=== PATIENT | female | born 1980 | race Caucasian/White ===

== ENCOUNTER 2018-05-06 05:34 | Emergency (ER) | payer OTHER ==
[~2018-05-06] VITALS: Ht 162.6 cm; Wt 214.6 kg
[~2018-05-06 05:34] MED LIST: AMITRIPTYLINE H10 MG PO; CEPHALEXIN500 MG PO; CRUTCH1 EACH; CYCLOBENZAPRINE10 MG PO; EFFER-K 10 MEQ10 MEQ PO; HYDROCHLOROTHIA25 MG PO; LAMICTAL100 MG PO; LEVAQUIN500 MG PO; LISINOPRIL20 MG PO; NAPROSYN500 MG PO; NAPROXEN500 MG PO; NORCO 5-325 TA1 EACH PO; PROTONIX40 MG PO; PROZAC10 MG PO; SULFACETAMIDE3.5 GM OPTH; TAMIFLU75 MG PO; TRIAMCINOLONE A15 GM TOP; ZESTORETIC 10-121 E1 PO; ZESTORETIC 20-1 EACH PO
--- OUTSIDE RECORDS SUMMARY | 2018-05-06 05:36 | XMS ---
PreManage Notification: DICK FIERRO Security Corporate Development Manager Events No recent Security Events currently on file CRITERIA MET - Group Notification CARE PROVIDERS There are no care providers on record at this time. Anne has no Care Guidelines for this patient. Ledy VISIT COUNT (12 MO.) 1 IZABELA Cabello TOTAL 1 NOTE: Visits indicate total known visits. ED/C VISIT TRACKING (12 MO.) 05/06/2018 05:34 IZABELA Hook [place] TYPE: Emergency COMPLAINT: - R SHOULDER/NECK PAIN INPATIENT VISIT TRACKING (12 MO.) No inpatient visits to display in this time frame [email or web address]
[2018-05-06] MEDS ORDERED: K-TAB ER20 MEQ PO (05:43)
[2018-05-06] MEDS ORDERED: LISINOPRIL-HCT1 EAC1 PO (05:43)
[2018-05-06] MEDS ORDERED: KLOR-CON 88 MEQ PO (05:44)
[2018-05-06] MEDS ORDERED: VENTOLIN HFA18 GM INH (05:44)
[2018-05-06] MEDS ORDERED: FLOVENT HFA12 G1 INH (05:45)
[2018-05-06] MEDS ORDERED: COLESTID1 GM PO (05:46)
[2018-05-06] MEDS ORDERED: BACLOFEN10 MG PO (06:06)
[2018-05-06] MEDS ORDERED: DICLOFENAC SODI75 MG PO (06:06)
== END 2018-05-06 06:15 | disposition home or self-care (01) ==
LOC: ED 05:34
DX: M54.2 Cervicalgia (principal); I10 Essential (primary) hypertension; F31.9 Bipolar disorder, unspecified; J45.909 Unspecified asthma, uncomplicated; Z88.8 Allergy status to other drugs, medicaments and biological substances; Z79.899 Other long term (current) drug therapy
CPT/HCPCS: 99283

== ENCOUNTER 2019-02-26 17:17 | Emergency (ER) | payer OTHER ==
[~2019-02-26] VITALS: Ht 162.6 cm; Wt 214.6 kg
[~2019-02-26 17:17] MED LIST changes: +BACLOFEN10 MG PO; +COLESTID1 GM PO; +DICLOFENAC SODI75 MG PO; +FLOVENT HFA12 G1 INH; +K-TAB ER20 MEQ PO; +KLOR-CON 88 MEQ PO; +LISINOPRIL-HCT1 EAC1 PO; +VENTOLIN HFA18 GM INH
--- OUTSIDE RECORDS SUMMARY | 2019-02-26 17:22 | XMS ---
PreManage Notification: DICK FIERRO Security Animal Behaviourist Events No recent Security Events currently on file CRITERIA MET - Group Notification CARE PROVIDERS ERIC ZHAO Physician Assistant Familia Vernon PHONE: [phone] Anne has no Care Guidelines for this patient. ELoraine VISIT COUNT (12 MO.) 2 IZABELA Cabello TOTAL 2 NOTE: Visits indicate total known visits. ED/UCC VISIT TRACKING (12 MO.) 02/26/2019 17:19 IZABELA [facility] [place] TYPE: Emergency COMPLAINT: - DEEP COUGH, SIDE AND STOMACH HURT 05/06/2018 05:34 IZABELA [facility] [place] TYPE: Emergency COMPLAINT: - R SHOULDER/NECK PAIN DIAGNOSES: - Allergy status to oth drug/meds/biol subst status - Bipolar disorder, unspecified - Unspecified asthma, uncomplicated - Cervicalgia - Other care home (current) drug therapy - Essential (primary) hypertension INPATIENT VISIT TRACKING (12 MO.) No inpatient visits to display in this time frame [email or web address]
[2019-02-26] MEDS ORDERED: LEVAQUIN750 MG PO (20:22)
[2019-02-26] MEDS ORDERED: MEDROL4 M1 PO (20:22)
== END 2019-02-26 20:46 | disposition home or self-care (01) ==
LOC: ED 17:17
DX: J15.5 Pneumonia due to Escherichia coli (principal); B34.9 Viral infection, unspecified; I10 Essential (primary) hypertension; J45.909 Unspecified asthma, uncomplicated; F31.9 Bipolar disorder, unspecified; F41.9 Anxiety disorder, unspecified; F43.10 Post-traumatic stress disorder, unspecified; E66.01 Morbid (severe) obesity due to excess calories; Z88.8 Allergy status to other drugs, medicaments and biological substances; Z79.899 Other long term (current) drug therapy; Z79.51 Long term (current) use of inhaled steroids
CPT/HCPCS: 71046; 99283-25

== ENCOUNTER 2020-01-01 22:17 | Inpatient (IN) | payer OTHER ==
[~2020-01-01] VITALS: Ht 162.6 cm; Wt 226.8 kg
[~2020-01-01 22:17] MED LIST changes: -FLOVENT HFA12 G1 INH; +FLOVENT HFA12 GM INH; +LEVAQUIN750 MG PO; +MEDROL4 M1 PO
--- OUTSIDE RECORDS SUMMARY | 2020-01-01 22:20 | XMS ---
PreManage Notification: DICK FIERRO Security First Helper Events No recent Security Events currently on file CRITERIA MET - Group Notification CARE PROVIDERS Donna Leroy Manager Critical Care/Bias Machine Operator Helper 09/21/2016-Current PHONE: [phone] ERIC ZHAO Physician Assistant Familia Vernon PHONE: [phone] Anne has no Care Guidelines for this patient. Ledy VISIT COUNT (12 MO.) 2 IZABELA Cabello TOTAL 2 NOTE: Visits indicate total known visits. ED/UCC VISIT TRACKING (12 MO.) 01/01/2020 22:18 I[facility]ELA [facility] [place] TYPE: Emergency COMPLAINT: - COUGH/FEVER/SOB 02/26/2019 17:19 IZABELA [facility] [place] TYPE: Emergency COMPLAINT: - DEEP COUGH, SIDE AND STOMACH HURT DIAGNOSES: - Allergy status to other drugs, medicaments and biological sub - Anxiety disorder, unspecified - Other equipment operator intermodal yard (current) drug therapy - Viral infection, unspecified - MCC (current) use of inhaled steroids - Pneumonia due to Escherichia coli - Unspecified asthma, uncomplicated - Post-traumatic stress disorder, unspecified - Nasal congestion - Essential (primary) hypertension - Bipolar disorder, unspecified - Morbid (severe) obesity due to excess calories INPATIENT VISIT TRACKING (12 MO.) No inpatient visits to display in this time frame [id number]
[2020-01-01] MEDS ORDERED: AMLODIPINE BESY10 MG PO (22:45)
[2020-01-01] MEDS ORDERED: CARVEDILOL6.25 MG PO (22:45)
[2020-01-01] MEDS ORDERED: HYDROCHLOROTHIA50 MG PO (22:45)
--- NOTE | 2020-01-02 01:30 | NUR ---
PATIENT INTAKE COMPLETED. PATIENT O2 SAT IN THE 80S WITH AMBULATION. PLACED ON NC TITRATED TO 2L. 02 SAT. RETURNED TO 96%, THEN TITRATED TO 1L NC. PATIENT STATED THAT SHE HAS A LARGE GROWTH BEHIND RIGHT CALF THAT DOES NOT HAVE BLOOD SUPPLY AND IS SUPPOSED TO BE REMOVED. ALSO STATES THAT A1C IS 5.99. PATIENT POSITIONED WITH PILLOWS UNDER ARMS AND LEFT RESTING IN BED WITH CALL LIGHT IN REACH.
--- NOTE | 2020-01-02 04:37 | NUR ---
PATIENT ASSESSMENT COMPLETED. PATIENT REPORTED PAIN IN HER BACK AND STATED IT HAPPENS WHEN SHE SITS FOR LONG PERIODS OF TIME. REPOSITIONED PATIENT AND GIVEN PRN TYLENOL. PATIENT DEMONSTRATED USE OF INHALER WITH SPACER. REQUESTED A PUDDING AND ATE 100%. PATIENT DENIED FURTHER NEEDS AND LEFT RESTING IN BED WITH CALL LIGHT IN REACH.
--- NOTE | 2020-01-02 06:43 | NUR ---
PATIENT ASSISTED TO COMMODE. HR INCREASED TO 124 WITH AMBULATION. TITRATED TO 2L O2 VIA NC. PATIENT DIAPHORETIC AND BEDDING SATURATED. CHANGED BEDDING. PATIENT TEMP 98.6 AXILLARY. PATIENT DENIED PAIN AND REQUESTED BREAKFAST. PATIENT LEFT RESTING IN BED WITH CALL LIGHT IN REACH.
--- NOTE | 2020-01-02 09:01 | NUR ---
Assessment completed. Chronic back pain at this time. Educated on oxygen use and instructed to communicate with staff if any changes to breathing, including shortness of breath. Verbalizes understanding. Breakfast order called to kitchen by patient. Remains on 2L/min per NC at this time. Patient states she still has shortness of breath with exertion. No changes to O2 at this time. Patient uses inhaler as prescribed with spacer at this time. States she notices a difference when she uses inhaler. Denies other needs at this time. Informed staff will provide wipes for bed bath today. Verbalizes understanding. Call light in reach, bed rails elevated X2.
--- NOTE | 2020-01-02 10:06 | NUR ---
Patient calls. States he has had "an accident." This nurse in to assist. Incontinent of small amount of loose stool. Assist to bathroom. Continent of urine and stool. Magdalena-care completed with assist by this nurse. Returns to bed. Respirations 39 per minute, heartrate up to 127 bpm. O2 sats remain in mid 90's. On 2 L/NC. Recovers after sitting for a couple minutes. Repositions self in bed.
[2020-01-02] MEDS ORDERED: OMEPRAZOLE20 MG PO (11:09)
[2020-01-02] MEDS ORDERED: ZESTRIL40 MG PO (11:11)
--- NOTE | 2020-01-02 11:28 | EKG ---
[facility] [address] [facility] [place], [place] [address] Signed Sinus tachycardia Otherwise normal ECG No previous ECGs available Confirmed by VIPUL LEON MD ([id number]) on 01/02/2020 11:28:10 AM Electronically Signed By: VIPUL LEON MD 01/02/20 1128 PATIENT NAME: FIERRODICKHER CRISTEL SANCHEZ Electrocardiogram DATE OF : 84 PHYSICIAN: VIPUL LEON MD REPORT #: [id number] REPORT IS CONFIDENTIAL AND NOT TO BE RELEASED WITHOUT AUTHORIZATION
--- NOTE | 2020-01-02 12:53 | NUR ---
Assessment completed. Vitals signs obtained. No changes from AM assessment. Assist to bathroom, continent of urine 100 mL in hat, more urine in toilet, unknown amount. Patient returns to bed. Labored respirations with elevated heartrate. Recovers after 2-3 minutes of lying in bed. Denies other needs. Call light in reach, bed rails elevated.
--- NOTE | 2020-01-02 13:20 | NUR ---
Patient uses call light for assistance. Phlegm noted over chin and chest. Patient states "it just came up out of nowhere." Specimen of collected and sent to lab. Assist to clean patient up. Denies other needs at this time. Call light in reach. Bed rails elevated.
--- NOTE | 2020-01-02 14:42 | NUR ---
Patient head of bed elevated. Eyes closed, respirations even and unlabored. Call light in reach, bed rails elevated. Allowed to rest at this time.
--- NOTE | 2020-01-02 16:15 | NUR ---
Assessment completed. Remains on 2L/min per NC of oxygen. Assist to ambulate to bathroom, continent of urine, some urine in toilet as well as hat. Takes 2- 3 minutes to recover from ambulation. Heartrate in 120's, respirations 39. States she has some stiffness in her neck from sleeping, Tylenol provided and repositioned. Vital signs obtained, WNL. Denies other needs at this time. Informed of need to order dinner, verbalizes understanding. States she will order, but nothing tastes right, if she can taste it at all. Call light in reach, bed rails elevated.
--- NOTE | 2020-01-02 17:45 | NUR ---
Supper tray provided. Denies other needs at this time. Call light in reach, bed rails elevated.
--- NOTE | 2020-01-02 19:30 | NUR ---
DAYSHIFT RN ASSISTED PATIENT TO THE BATHROOM AND BACK TO BED. PATIENT WALKS INDEPENDENTLY BUT BECOMES SOB WITH ACTIVITY. HR 120'S AND RR LOW 30'S. MAINTAINS O2 SAT >90%. RT IN FOR SCHEDULED NEB TREATMENTS.
--- NOTE | 2020-01-02 21:15 | NUR ---
PATIENT UP TO THE BATHROOM TO VOID AND HAVE BM. TOLERATES WELL. BED LINENS CHANGED DUE TO DRIBBLING. PATIENT WORN 2L NC WHILE AMBULATING AND WAS 96% UPON RETURNING TO BED. EVENING MEDS GIVEN PER ORDER. PATIENT REPORTS FEELING BETTER TONIGHT AND HAVING HER SENSE OF TASTE BACK. HOWEVER, IS REQUESTING PRN COUGH MEDS.
--- NOTE | 2020-01-02 23:30 | NUR ---
PATIENT PROVIDED WITH PRN COUGH MEDS. PATIENT RESTING IN BED. BACK ON 1L NC DUE TO SLIGHT DESAT TO 85% WHILE SLEEPING. PATIENT DENIES ANY NEEDS. CALL LIGHT IN REACH.
--- NOTE | 2020-01-03 01:35 | NUR ---
PT TRANSFERRED FROM CCU TO ROOM 117 IN BARIATRIC BED. PT ARRIVES ON 1L/O2, DENIES SOB, DENIES PAIN. SPO2 MONITORING IN PLACE CURRENTLY 94% RESP UNLABORED RATE IS 20. BEDSIDE REPORT RECEIVED FROM MARIAM CANCINO.
--- NOTE | 2020-01-03 03:30 | NUR ---
PT AWAKE IN BED, DENIES NEEDS.
--- NOTE | 2020-01-03 04:00 | NUR ---
PT CALLS FOR ASSISTANCE IN BR, HAD BOWEL MOVEMENT AND NEEDS HELP WITH CHARAN CARE. ASSISTED BACK TO BED. CALL LIGHT IN REACH.
--- NOTE | 2020-01-03 05:30 | NUR ---
PT CALLS TO STATE SHE HAS HAD AN INCONTINENT EPISODE WITH COUGHING SPELL. UP TO TOILET, MISSED HAT BUT DID VOID MORE AND HAD BOWEL MOVEMENT, ASSISTED WITH CHARAN CARE. BACK TO BED. LABS DRAWN. PT HAS NO COMPLAINTS AT THIS TIME.
--- NOTE | 2020-01-03 07:10 | NUR ---
REPORT RECEIVED. PATIENT SPO2 95%, PULSE 82-90 BPM PER PULSE OX MONITOR.
--- NOTE | 2020-01-03 10:57 | NUR ---
PATIENT UP TO BATHROOM TO VOID. INCONTINENT DUE TO COUGHING EPISODE. PATIENT AMBULATES WELL INDEPENDENTLY. MORING MEDS GIVEN. VS STABLE. RESPIRATIONS 28. SAO2 94% ORA. INSPIRATORY WHEEZES HEARD IN RIGHT LOWER LOBE. PATIENT DENIES PAIN. PATIENT UP TO CHAIR. WATER FILLED. BED LINENS CHANGED. CALL LIGHT WITHIN REACH. NO FURTHER REQUESTS.
--- NOTE | 2020-01-03 12:48 | NUR ---
PATIENT UP TO BATHROOM TO VOID. STATES SHE IS INCONTINENT FROM COUGHING EPISODE. PATIENT REQUESTS A SHOWER. WORKERS COMPENSATION CONSULTANT NOTIFIED. SPO2 96% PER MONITOR. RESPIRATIONS EVEN AND UNLABORED. NO FURTHER REQUESTS.
--- NOTE | 2020-01-03 13:07 | NUR ---
CHECKED ON PT, DUE TO PRECAUTIONS AT THIS TIME UNABLE TO VISIT PT. WILL FOLLOW ABLE
--- NOTE | 2020-01-03 14:05 | NUR ---
PATIENT TWO PERSON ASSIST IN SHOWER. FRESH LINEN, GOWN, AND ICE WATER. IN BED PLAN TO NAP. CALL LIGHT WITHIN REACH. NO FURTHER NEEDS AT THIS TIME.
--- NOTE | 2020-01-03 15:20 | NUR ---
patient was washed and hair was untangled then braided. stood during shower. given fresh water. patient was planning to nap once we left. left with call light in reach. no further needs at this time.
--- NOTE | 2020-01-03 16:30 | NUR ---
PATIENT RESTING IN BED. UP TO BATHROOM. PATIENT STATES SHE STARTED HER PERIOD. PADS GIVEN. PATIENT CALLS TO HAVE HIM BRING UNDERWEAR SINCE HOSPITAL UNDERWEAR DOESN'T FIT. ASSESSMENT COMPLETE. SAO2 94% ORA. RT IN.
--- NOTE | 2020-01-03 17:04 | NUR ---
PATIENT IS INDEPENDENT IN ROOM. ONLY BARRIER KNOWN IS NO PCP. WILL DISCUSS THIS WITH PATIENT BEFORE DISCHARGE.
--- NOTE | 2020-01-03 17:56 | NUR ---
PATIENT UP IN CHAIR VISITING. SAYS "FEELINGN MUCH BETTER". CALL LIGHT WITHIN REACH NO FURTHER NEEDS AT THIS TIME
--- NOTE | 2020-01-03 18:40 | NUR ---
PATIENT'S VS HAVE REMAINED STABLE. SAO2 AROUND 94% ORA THIS SHIFT. PATIENT STATES SHE IS FEELING BETTER AND DENIES PAIN AND SHORTNESS OF BREATH. RT IN X3. PATIENT CONTINUES TO EXPERIENCE COUGHING SPELLS, BUT COUGH IS DRY. PATIENT INCONTINENT WITH COUGHING SPELLS. AMBULATES WELL ON HER OWN. PATIENT STARTED PERIOD THIS SHIFT. PATIENT IN GOOD SPIRITS AND IS ALERT AND ORIENTED.
--- NOTE | 2020-01-03 18:51 | NUR ---
DINNER ARRIVES. WATER FILLED PER PATIENT REQUEST. PATIENT DENIES PAIN OR SHORTNESS OF BREATH. PATIENT REPORTS HAVING VOMITED FROM A COUGHING SPELL, BUT STATES SHE DOESN'T FEEL NAUSEOUS. NO FURTHER REQUESTS. CALL LIGHT WITHIN REACH.
--- NOTE | 2020-01-03 19:30 | NUR ---
SHIFT REPORT RECEIVED FROM NURSE MONROY. PT LAYING IN BED WATCHING TV. NO REQUESTS AT THIS TIME.
--- NOTE | 2020-01-03 19:55 | PATH ---
[facility] [address] [place], [place] [address] Signed ORDERING PHYSICIAN: Brown Hernandez MD PATIENT NAME: DICK FIERRO GENDER: F : 1980 Prior History: No cases found. SPECIMEN(S): No Source Given MOLECULAR PATHOLOGY RESULTS: SARS-CoV-2 Not Detected ADDITIONAL NOTES.: The Walden Fusion SARS-CoV-2 Assay is a multiplex real-time PCR (RT-PCR) in vitro diagnostic test intended for the qualitative detection of RNA from SARS-CoV-2 from individuals who meet COVID-19 clinical and/or epidemiological criteria. In general, SARS-CoV-2 RNA can be detected during the acute phase of infection. Positive results indicate the presence of SARS-CoV-2 RNA. Clinical correlation with patient history and other diagnostic information is necessary to determine patient infection status. Positive results do not rule out bacterial infection or co-infection with other viruses. Negative results do not preclude SARS-CoV-2 infection and should not be used as the sole basis for patient management decisions. Negative results must be combined with other clinical observations, patient history, and epidemiological information. The Walden Fusion SARS-CoV-2 Assay is not yet approved or cleared by the [place] FDA. When there are no FDA-approved or cleared tests available, and other criteria are met, FDA can make tests available under an emergency access mechanism called an Emergency Use Authorization (EUA). The EUA for this test is supported by the [place] of Health and Human Service's (HHS's) declaration that circumstances exist to justify the emergency use of in vitro diagnostics for the detection and/or diagnosis of the virus that causes COVID-19. This EUA will remain in effect for the duration of the COVID-19 declaration justifying emergency of IVDs, unless it is terminated or revoked by FDA, after which the test may no longer be used. The Walden Fusion SARS-CoV-2 Assay is for use only under EUA PATIENT NAME: DICK FIERRO CRISTEL SANCHEZ PATHOLOGY DATE OF : 84 REPORT #: [id number] PHYSICIAN: TERE PIERRE PCP: NO PRIMARY CARE PHYSICIAN REPORT IS CONFIDENTIAL AND NOT TO BE RELEASED WITHOUT AUTHORIZATION [facility] [address] [place] [id number] Signed in laboratories certified under the Clinical Laboratory Improvement Amendments of 1988 (CLIA) to perform high complexity tests. [facility] is certified under CLIA to perform high complexity clinical laboratory testing. PERFORMING LABORATORY.: Molecular testing was performed by [facility] [address] [place], [place] [address] [address] (Gun Stock Maker: Jerardo Gordillo D.O.; CLIA#: [id number]) Diagnostician: System Interface Pathologist Electronically Signed 01/03/2020 Copies: ~ PATIENT NAME: DICK FIERRO CRISTEL SANCHEZ PATHOLOGY DATE OF : 84 REPORT #: [id number] PHYSICIAN: TERE PIERRE PCP: NO PRIMARY CARE PHYSICIAN REPORT IS CONFIDENTIAL AND NOT TO BE RELEASED WITHOUT AUTHORIZATION
--- NOTE | 2020-01-03 22:00 | NUR ---
CHECKED IN ON PT. INFORMED PT THAT HER COVID TEST IS BACK AND IS NEGATIVE. PT IS HAPPY. PT DENIES NEEDS AT THIS TIME.
--- NOTE | 2020-01-03 22:49 | NUR ---
ELECTRICAL MAINTENANCE MAN TO ROOM FOR SCHEDULED MED ADMINISTRATION. PT NOTIFIED BY PRIMARY RN EARLIER THAT HE COVID TEST WAS NEGATIVE. PT SITTING UP IN CHAIR. THANKFUL THAT HE TEST WAS NEGATIVE. STATES THAT SHE IS FEELING MUCH BETTER. PT DOES REPORT EMESIS, STATES THAT SHE VOMITED AFTER A COUGHING EPISODE. DENIES ONGOING NAUSEA. PT DENIES SOB. TELE WITH OXIMETERY DC'D AT THIS TIME. SA02 94% ON RA. PT DENIES FURTHER NEEDS AT THIS TIME. VERY TALKATIVE. STATES THAT SHE IS HOPEFUL THAT SHE CAN GO HOME TOMORROW. CALL LIGHT IN REACH. WHITE BOARD UDPATED.
--- NOTE | 2020-01-03 23:00 | NUR ---
ASSESSMENT COMPLETE. PT REPORTS NO BOWEL MOVEMENT TODAY. LUNG SOUNDS CLEAR AND DIM THROUGHOUT WITH THE EXCEPTION OF RLL WHICH IS COARSE WITH CRACKLES. PT COMPLAINS OF PRESSURE IN LEFT EAR; PRN TYLENOL ADMINISTERED. PT IS TALKATIVE AND ENJOYS CONVERSATION. NO FURTHER NEEDS AT THIS TIME.
--- NOTE | 2020-01-04 02:39 | NUR ---
CHECKED ON PT. PT SLEEPING ON HER BACK, EVEN UNLABORED BREATHING. NO APPARENT SIGNS OF DISTRESS.
--- NOTE | 2020-01-04 05:40 | NUR ---
IN ROOM FOR MORNING VITALS. PT STATES SHE WAS SLEEPING BETTER THAN "EVER BEFORE IN HOSPITAL". VSS. PT HAD PUT ON 02 PER BEFORE FALLING ASLEEP. SP02 98+% . ASSESSMENT COMPLETE. PT DENIES NEEDS AT THIS TIME. CALL LIGHT WITHIN REACH
--- NOTE | 2020-01-04 05:42 | NUR ---
PT SLEPT WELL THIS SHIFT. PT WAS EXCITED WITH NEGATIVE COVID RESULTS AND LOOKS FORWARD TO DISCHARGING HOME. VSS THIS SHIFT. LUNGS CLEAR AND DIM IN ALL LOBES EXCEPT RLL WHICH HAS SOME CRACKLES. PT USES 1.5L PER NC WHEN SLEEPING HERE. AT HOME PT STATES SHE IS "SUPPOSED TO" WEAR A CPAP BUT HASNT FOR MONTHS. PT IS INDEPENDENT IN THE ROOM WITH MOST ACTIVITIES EXCEPT FOR CLEANING AFTER BM.
--- NOTE | 2020-01-04 07:10 | NUR ---
PATIENT RESTING IN BED. RESPIRATIONS EVEN AND UNLABORED. CALL LIGHT WITHIN REACH.
--- NOTE | 2020-01-04 08:30 | NUR ---
PATIENT SITTING UP IN CHAIR. THE LAY OUT MAKER ROSSANA CHANGED THE LINENS
--- NOTE | 2020-01-04 09:45 | NUR ---
PATIENT SITTING UP IN CHAIR. VITAL SIGNS AND I&O DONE. CALL LIGHT WITHIN REACH. NO OTHER NEEDS AT THIS TIME
--- NOTE | 2020-01-04 10:18 | NUR ---
PATIENT UP IN CHAIR EATING BREAKFAST. STATES SHE GOT MORE SLEEP LAST NIGHT THAT SHE HAS BEEN AND IS FEELING BETTER. ASSESSMENT COMPLETE. VS STABLE. RESPIRATIONS EVEN AND UNLABORED. AMBULATING WELL INDEPENDENTLY IN ROOM. UP TO BATHROOM FOR BM. NO FURTHER REQUESTS. CALL LIGHT WITHIN REACH.
[2020-01-04] MEDS ORDERED: DOXYCYCLINE HY100 MG PO (12:14)
--- NOTE | 2020-01-04 13:07 | NUR ---
DISCHARGE INSTRUCTIONS GIVEN. PATIENT STATES UNDERSTANDING AND HAS NO QUESTIONS. VS STABLE. HOME MED RETURNED TO PATIENT. IV DC WITH TIP INTACT. PATIENT TOLERATED WELL. NO FURTHER REQUESTS. PATIENT STATES SHE WE HAVE SATISFIED HER CONCERNS AND QUESTIONS.
== END 2020-01-04 13:19 | disposition home or self-care (01) | DRG 194 ==
LOC: ED 22:17 → CCU 22:19 → ED 01-02 00:04 → CCU 01-02 09:27 → MS 01-02 09:27 → CCU 01-02 09:28 → MS 01-03 01:25 → CCU 01-03 01:25 → MS 01-03 01:25
PROVIDERS: ADMIT Internal Medicine; ATTEND Internal Medicine
DX: J13 Pneumonia due to Streptococcus pneumoniae (principal); Z68.45 Body mass index [BMI] 70 or greater, adult; Z20.828 Contact with and (suspected) exposure to other viral communicable diseases; I10 Essential (primary) hypertension; F31.9 Bipolar disorder, unspecified; F41.9 Anxiety disorder, unspecified; F43.10 Post-traumatic stress disorder, unspecified; E66.01 Morbid (severe) obesity due to excess calories; K58.0 Irritable bowel syndrome with diarrhea; Z88.8 Allergy status to other drugs, medicaments and biological substances; Z79.899 Other long term (current) drug therapy; Z79.51 Long term (current) use of inhaled steroids
CPT/HCPCS: 71045; 80053; 83605; 83735; 83880; 84484; 84703; 85025; 85379; 93005; 93010; 94640; 94760; 99285-25; C9803; G0378; J0696; J1650; U0003

== ENCOUNTER 2020-03-20 09:42 | Inpatient (IN) | payer OTHER ==
[~2020-03-20] VITALS: Ht 162.6 cm; Wt 243.8 kg
[~2020-03-20 09:42] MED LIST changes: +AMLODIPINE BESY10 MG PO; +CARVEDILOL6.25 MG PO; +DOXYCYCLINE HY100 MG PO; +HYDROCHLOROTHIA50 MG PO; +OMEPRAZOLE20 MG PO; +ZESTRIL40 MG PO
--- OUTSIDE RECORDS SUMMARY | 2020-03-20 09:44 | XMS ---
PreManage Notification: DICK FIERRO Security Receiving Coordinator Events No recent Security Events currently on file CRITERIA MET - Group Notification CARE PROVIDERS Donna Leroy Petrophysicist/Chimney Supervisor Brick 09/21/2016-Current PHONE: [phone] [facility] Current PHONE: [phone] Anne has no Care Guidelines for this patient. Ledy VISIT COUNT (12 MO.) 2 IZABELA Cabello TOTAL 2 NOTE: Visits indicate total known visits. ED/UCC VISIT TRACKING (12 MO.) 03/20/2020 09:42 IZABELA Hook [place] TYPE: Emergency COMPLAINT: - MULTIPLE COMPLAINTS 01/01/2020 22:18 IZABELA Hook [place] TYPE: Emergency COMPLAINT: - PHEUMONIA INPATIENT VISIT TRACKING (12 MO.) 01/02/2020 09:27 IZABELA Hook [place] TYPE: Medical Surgical COMPLAINT: - PNUEMONIA DIAGNOSES: - Pneumonia, unspecified organism - Post-traumatic stress disorder, unspecified - Irritable bowel syndrome with diarrhea - Allergy status to other drugs, medicaments and biological substances - Essential (primary) hypertension - Anxiety disorder, unspecified - Morbid (severe) obesity due to excess calories - Body mass index [BMI] 70 or greater, adult - skilled nursing (current) use of inhaled steroids - Bipolar disorder, unspecified - Pneumonia due to Streptococcus pneumoniae - Other rodent exterminator (current) drug therapy - Contact with and (suspected) exposure to other viral communicable diseases [email or web address]
[2020-03-21] MEDS ORDERED: FLUOXETINE HCL20 MG PO (13:30)
--- NOTE | 2020-03-21 18:33 | EKG ---
[facility] [address] [facility] [place], [place] [address] Signed Normal sinus rhythm Low voltage QRS Borderline ECG When compared with ECG of 01-JAN-2020 22:42, No significant change was found Confirmed by CHRISTIE WILD DO ([id number]) on 03/21/2020 6:33:21 PM Electronically Signed By: CHRISTIE WILD DO 03/21/20 1833 PATIENT NAME: DICK FIERRO Electrocardiogram DATE OF : 84 PHYSICIAN: CHRISTIE WILD DO REPORT #: [id number] REPORT IS CONFIDENTIAL AND NOT TO BE RELEASED WITHOUT AUTHORIZATION
--- NOTE | 2020-03-21 18:34 | EKG ---
[facility] [address] [facility] [place], [place] [address] Signed Normal sinus rhythm Low voltage QRS Borderline ECG No previous ECGs available Confirmed by CHRISTIE WILD DO ([id number]) on 03/21/2020 6:34:33 PM Electronically Signed By: CHRISTIE WILD DO 03/21/20 1834 PATIENT NAME: DICK FIERRO Electrocardiogram DATE OF : 84 PHYSICIAN: CHRISTIE WILD DO REPORT #: [id number] REPORT IS CONFIDENTIAL AND NOT TO BE RELEASED WITHOUT AUTHORIZATION
[2020-03-23] MEDS ORDERED: MELATONIN3 MG PO (16:30)
[2020-03-24] MEDS ORDERED: ALBUTEROL2.5 MG/3 M INH (10:49)
== END 2020-03-24 11:07 | disposition home or self-care (01) | DRG 177 ==
LOC: ED 09:42 → MS 09:43
PROVIDERS: ADMIT Student in an Organized Health Care Education/Training Program; ATTEND Student in an Organized Health Care Education/Training Program
PROC: XW033E5 Introduction of Remdesivir Anti-infective into Peripheral Vein, Percutaneous Approach, New Technology Group 5 (ICD-10-PCS; principal; 2020-03-21)
PROC: 5A09357 Assistance with Respiratory Ventilation, Less than 24 Consecutive Hours, Continuous Positive Airway Pressure (ICD-10-PCS; 2020-03-21)
DX: U07.1 COVID-19 (principal); J12.89 Other viral pneumonia; J96.01 Acute respiratory failure with hypoxia; Z68.45 Body mass index [BMI] 70 or greater, adult; E66.01 Morbid (severe) obesity due to excess calories; I10 Essential (primary) hypertension; F31.9 Bipolar disorder, unspecified; F41.9 Anxiety disorder, unspecified; F43.10 Post-traumatic stress disorder, unspecified; K21.9 Gastro-esophageal reflux disease without esophagitis; K58.0 Irritable bowel syndrome with diarrhea; G47.33 Obstructive sleep apnea (adult) (pediatric); J45.30 Mild persistent asthma, uncomplicated; Z88.8 Allergy status to other drugs, medicaments and biological substances; Z79.899 Other long term (current) drug therapy; Z79.51 Long term (current) use of inhaled steroids
CPT/HCPCS: 36415; 71045; 71260; 80053; 83605; 83735; 83880; 84484; 84703; 85025; 85379; 87040; 87070; 87205; 90686; 93005; 93010; 94640; 94660; 94667; 94668; 94760; 96372; 96375; 96376; 99285-25; C9803; G0378; J1100; J1650; J7050; J8540; Q9967; U0003

== ENCOUNTER 2024-04-21 21:38 | Inpatient (IN) | payer OTHER ==
[~2024-04-21] VITALS: Ht 162.6 cm; Wt 249.0 kg
[~2024-04-21 21:38] MED LIST changes: +ALBUTEROL2.5 MG/3 M INH; +FLUOXETINE HCL20 MG PO; +MELATONIN3 MG PO; +NYAMYC15 GM TOP
[2024-04-21] MEDS ORDERED: ALBUTEROL/IPRATROPIUM 3 ML NEB INH PRN (21:45)
--- OUTSIDE RECORDS SUMMARY | 2024-04-21 21:45 | XMS ---
PreManage Notification: DICK FIERRO Security Commercial Designer Events No recent Security Events currently on file CRITERIA MET - Group Notification CARE PROVIDERS Donna Leroy Electroplater Automatic/Construction Project Engineer 03/24/2024-Current PHONE: [phone] -[facility]+ Dentist: [employer] [facility] PHONE: [phone] -[place]- Dentist: [employer] [facility] Dental [facility] PHONE: [phone] BILL KENNEDY Physician Mold Setter Current PHONE: [phone] [facility] Current WORKERS [facility] \[facility] ([facility]) [facility] PHONE: [phone] Anne has no Care Guidelines for this patient. Ledy VISIT COUNT (12 MO.) 1 IZABELA Cabello TOTAL 1 NOTE: Visits indicate total known visits. ED/UCC VISIT TRACKING (12 MO.) 04/21/2024 21:39 IZABELA Hook [place] TYPE: Emergency COMPLAINT: - TROUBLE BREATHING INPATIENT VISIT TRACKING (12 MO.) No inpatient visits to display in this time frame [id number]
[2024-04-21] MEDS ORDERED: FLUTICASONE PR50 MCG IH (21:53)
[2024-04-21 22:00] LABS: BASOPHILS 0.4 % (0-2); EOSINOPHILS 1.7 % (0-6); HEMATOCRIT 35.8 % (35.0-50.0); LYMPHOCYTES 14.7 % (24-44); MCH 30.9 (27-36); MCHC 33.5 g/dl (30-36); MCV 92.1 fl (81-99); MONOCYTES 6.1 % (0-12); NEUTROPHILS 77.1 % (39-80); PLATELET COUNT 181 K/uL (140-440); RBC 3.89 M/ul (4.3-5.7); RDW 16.8 (10.5-15.0)
[2024-04-21 22:21] LABS: ALBUMIN 3.6 g/dL (3.4-5.0); ALBUMIN/GLOBULIN RATIO 0.78 (1.1-2.4); ANION GAP 16.9 (7-21); BILIRUBIN, TOTAL 2.1 ng/dL (0.2-1.0); BUN/CREATININE RATIO 12.64 (6.0-28.6); CALCIUM 9.1 mg/dL (8.5-10.1); CREATININE, SERUM 0.87 mg/dL (0.55-1.02); MAGNESIUM 1.7 mg/dL (1.8-2.4); POTASSIUM 3.9 mmol/L (3.5-5.1); PROTEIN, TOTAL 8.2 g/dL (6.4-8.2)
[2024-04-21 22:25] LABS: CORONAVIRUS COVID-19 AG NEGATIVE (NEGATIVE); INFLUENZA A AG NEGATIVE (NEGATIVE); INFLUENZA B AG NEGATIVE (NEGATIVE)
[2024-04-21 22:25] LABS: LACTIC ACID, BLOOD 4.3 mmol/L (0.4-2.0)
[2024-04-21] MEDS ORDERED: levoFLOXacin 750 MG PIGGYBACK IV ONE (22:45)
[2024-04-21] MEDS ORDERED: FUROSEMIDE 100 MG/10 ML VIAL IV ONE (22:45)
[2024-04-21] MEDS ORDERED: VENTOLIN HFA18 GM INH (22:54)
[2024-04-21] MEDS ORDERED: IRON325 M1 PO (22:54)
[2024-04-21] MEDS ORDERED: HYDROCHLOROTH12.5 M1 PO (22:54)
[2024-04-21] MEDS ORDERED: AMLODIPINE BESY10 MG PO (22:54)
[2024-04-21 23:36] LABS: BILIRUBIN, URINE NEGATIVE (negative); BLOOD/HGB, URINE SMALL (Negative); KETONE, URINE NEGATIVE (Negative); LEUK ESTERASE, URINE NEGATIVE (negative); NITRITE, URINE NEGATIVE (negative)
[2024-04-21 23:43] LABS: EPITHELIAL CELLS, URINE SQUAMOUS 1+ /lpf (0-1+)
[2024-04-21 23:44] LABS: CRYSTALS, URINE NONE SEEN (0-1+)
[2024-04-21 23:45] LABS: BACTERIA, URINE RARE /hpf (negative); CASTS, URINE GRANULAR 1+ \\lpf; COLLECTION TYPE, URINE CLEAN CATCH; REFLEX CULTURE, URINE No (No)
[2024-04-22] MEDS ORDERED: DAPTOmycin 500 MG/10 ML VIAL IV ONE (02:30)
[2024-04-22 06:05] LABS: BASOPHILS 0.4 % (0-2); EOSINOPHILS 1.8 % (0-6); HEMATOCRIT 33.1 % (35.0-50.0); HEMOGLOBIN 11.2 g/dL (12.0-18.0); LYMPHOCYTES 10.8 % (24-44); MCH 30.7 (27-36); MCHC 33.8 g/dl (30-36); MCV 90.8 fl (81-99); MONOCYTES 7.5 % (0-12); NEUTROPHILS 79.5 % (39-80); PLATELET COUNT 167 K/uL (140-440); RBC 3.65 M/ul (4.3-5.7); RDW 16.4 (10.5-15.0)
[2024-04-22 06:20] LABS: ALBUMIN 3.3 g/dL (3.4-5.0); ALBUMIN/GLOBULIN RATIO 0.75 (1.1-2.4); BILIRUBIN, TOTAL 1.9 ng/dL (0.2-1.0); BUN/CREATININE RATIO 11.53 (6.0-28.6); CREATININE, SERUM 0.78 mg/dL (0.55-1.02); PROTEIN, TOTAL 7.7 g/dL (6.4-8.2)
[2024-04-22] MEDS ORDERED: bisacodyL 10 MG SUPP PR PRN (10:45)
[2024-04-22] MEDS ORDERED: ACETAMINOPHEN 325 MG TAB PO PRN (10:45)
[2024-04-22] MEDS ORDERED: ondansetron HCL 4 MG/2 ML VIAL IV PRN (10:45)
[2024-04-22] MEDS ORDERED: FUROSEMIDE 100 MG/10 ML VIAL IV SCH ×2 (11:00→13:37)
[2024-04-22] MEDS ORDERED: ENOXAPARIN SODIUM 60 MG/0.6 ML SYR SUB-Q SCH ×2 (11:00→13:36)
[2024-04-22] MEDS ORDERED: predniSONE 20 MG TAB PO SCH ×2 (11:00→13:38)
[2024-04-22] MEDS ORDERED: POLYETHYLENE GLYCOL 3350 1 PACKET PO PRN (11:00)
[2024-04-22] MEDS ORDERED: AZITHROMYCIN 250 MG TAB PO SCH ×2 (11:00→13:36)
[2024-04-22] MEDS ORDERED: levoFLOXacin 750 MG TAB PO SCH (11:00)
[2024-04-22] MEDS ORDERED: PHARMACY RENAL DOSE ADJUSTMENT 1 DOSE MISC PO SCH (12:00)
[2024-04-22 12:35] VITALS: BP 139/86
[2024-04-22] MEDS ORDERED: MICONAZOLE NITRATE 1 EA BTL TOP SCH (13:30)
[2024-04-22 16:00] VITALS: BP 139/86
[2024-04-22] MEDS ORDERED: COLESTIPOL HCL 1 GM TAB PO SCH ×2 (17:30→21:00)
[2024-04-22 18:14] VITALS: BP 140/98
[2024-04-22 20:57] VITALS: BP 144/87
[2024-04-22] MEDS ORDERED: MELATONIN 3 MG TAB PO PRN (21:00)
[2024-04-22 21:32] VITALS: BP 144/87
[2024-04-22] MEDS ORDERED: ALBUTEROL SULFATE 0.083% 3 ML VIAL INH PRN (22:15)
[2024-04-22] MEDS ORDERED: ALBUTEROL/IPRATROPIUM 3 ML NEB INH PRN (22:15)
[2024-04-23] VITALS (13 sets, daily range): BP systolic 121–146; BP diastolic 69–84
[2024-04-23 05:42] LABS: BASOPHILS 0.2 % (0-2); EOSINOPHILS 0.1 % (0-6); HEMATOCRIT 31.3 % (35.0-50.0); HEMOGLOBIN 10.5 g/dL (12.0-18.0); LYMPHOCYTES 11.9 % (24-44); MCH 30.6 (27-36); MCHC 33.6 g/dl (30-36); MCV 90.9 fl (81-99); MONOCYTES 5.2 % (0-12); NEUTROPHILS 82.6 % (39-80); PLATELET COUNT 173 K/uL (140-440); RBC 3.44 M/ul (4.3-5.7); RDW 16.2 (10.5-15.0)
[2024-04-23 06:00] LABS: ANION GAP 6.2 (7-21); BUN/CREATININE RATIO 16.66 (6.0-28.6); CALCIUM 8.7 mg/dL (8.5-10.1); CREATININE, SERUM 0.72 mg/dL (0.55-1.02); MAGNESIUM 1.7 mg/dL (1.8-2.4); POTASSIUM 4.2 mmol/L (3.5-5.1)
[2024-04-23] MEDS ORDERED: BUDESONIDE 0.5 MG/2 ML VIAL INH SCH (08:00)
[2024-04-23] MEDS ORDERED: ALBUTEROL/IPRATROPIUM 3 ML NEB INH SCH (08:00)
[2024-04-23] MEDS ORDERED: acetaZOLAMIDE 250 MG TAB PO ONE (08:15)
[2024-04-23] MEDS ORDERED: AMLODIPINE BESYLATE 10 MG TAB PO SCH (09:00)
[2024-04-23] MEDS ORDERED: PANTOPRAZOLE SODIUM 40 MG TABEC PO SCH (09:00)
[2024-04-23] MEDS ORDERED: FLU VACC TS2024-25(6MOS UP)/PF 1 EACH SYR IM SCH (09:00)
[2024-04-23] MEDS ORDERED: lisinopriL 20 MG TAB PO SCH (09:00)
[2024-04-23] MEDS ORDERED: lamoTRIgine 100 MG TAB PO SCH (09:00)
[2024-04-23] MEDS ORDERED: FLUOXETINE HCL 20 MG CAP PO SCH (09:00)
[2024-04-23] MEDS ORDERED: FUROSEMIDE 40 MG/4 ML VIAL IV SCH (09:45)
--- NOTE | 2024-04-23 21:49 | EKG ---
[facility] [address] [facility] [place] [address] Signed Sinus tachycardia Low voltage QRS Incomplete right bundle branch block Nonspecific T wave abnormality Abnormal ECG When compared with ECG of 21-MAR-2020 08:22, Incomplete right bundle branch block is now present Confirmed by Hayley Cook DO ([id number]) on 04/23/2024 9:49:03 PM Electronically Signed By: HAYLEY COOK DO 04/23/24 2149 PATIENT NAME: DICK FIERRO Electrocardiogram DATE OF : [birth year] PHYSICIAN: HAYLEY COOK DO REPORT #: [id number] REPORT IS CONFIDENTIAL AND NOT TO BE RELEASED WITHOUT AUTHORIZATION
[2024-04-24] VITALS (10 sets, daily range): BP systolic 102–148; BP diastolic 60–87
[2024-04-24 05:21] LABS: BASOPHILS 0.3 % (0-2); EOSINOPHILS 0.1 % (0-6); HEMATOCRIT 31.1 % (35.0-50.0); HEMOGLOBIN 10.5 g/dL (12.0-18.0); LYMPHOCYTES 16.4 % (24-44); MCH 30.8 (27-36); MCHC 33.8 g/dl (30-36); MONOCYTES 7.8 % (0-12); NEUTROPHILS 75.4 % (39-80); PLATELET COUNT 207 K/uL (140-440); RBC 3.42 M/ul (4.3-5.7); RDW 16.1 (10.5-15.0)
[2024-04-24 05:25] LABS: ANION GAP 8.1 (7-21); BUN/CREATININE RATIO 19.17 (6.0-28.6); CALCIUM 8.9 mg/dL (8.5-10.1); CREATININE, SERUM 0.73 mg/dL (0.55-1.02); MAGNESIUM 1.8 mg/dL (1.8-2.4); POTASSIUM 4.1 mmol/L (3.5-5.1)
[2024-04-24] MEDS ORDERED: FUROSEMIDE 40 MG/4 ML VIAL IV SCH (09:00)
[2024-04-25] VITALS (8 sets, daily range): BP systolic 118–139; BP diastolic 70–81
[2024-04-25 05:45] LABS: ANION GAP 8.9 (7-21); BUN/CREATININE RATIO 21.51 (6.0-28.6); CALCIUM 9.3 mg/dL (8.5-10.1); CREATININE, SERUM 0.79 mg/dL (0.55-1.02); POTASSIUM 3.9 mmol/L (3.5-5.1)
[2024-04-26] VITALS (8 sets, daily range): BP systolic 125–150; BP diastolic 71–86
[2024-04-26 05:33] LABS: BASOPHILS 0.4 % (0-2); EOSINOPHILS 0.1 % (0-6); HEMATOCRIT 32.6 % (35.0-50.0); HEMOGLOBIN 10.9 g/dL (12.0-18.0); LYMPHOCYTES 17.7 % (24-44); MCH 30.3 (27-36); MCHC 33.4 g/dl (30-36); MCV 90.7 fl (81-99); MONOCYTES 7.7 % (0-12); NEUTROPHILS 74.1 % (39-80); PLATELET COUNT 207 K/uL (140-440); RDW 15.7 (10.5-15.0)
[2024-04-26 05:43] LABS: ANION GAP 7.9 (7-21); BUN/CREATININE RATIO 20.51 (6.0-28.6); CALCIUM 9.1 mg/dL (8.5-10.1); CREATININE, SERUM 0.78 mg/dL (0.55-1.02); POTASSIUM 3.9 mmol/L (3.5-5.1)
[2024-04-26 06:12] LABS: TSH, 3RD GENERATION 3.009 uIU/mL (0.358-3.740)
[2024-04-27] VITALS (9 sets, daily range): BP systolic 112–142; BP diastolic 59–84
[2024-04-27 05:43] LABS: BUN/CREATININE RATIO 23.28 (6.0-28.6); CREATININE, SERUM 0.73 mg/dL (0.55-1.02)
[2024-04-28] VITALS (11 sets, daily range): BP systolic 112–149; BP diastolic 62–85
[2024-04-28 05:42] LABS: ANION GAP 7.5 (7-21); BUN/CREATININE RATIO 24.09 (6.0-28.6); CALCIUM 9.3 mg/dL (8.5-10.1); CREATININE, SERUM 0.83 mg/dL (0.55-1.02); MAGNESIUM 1.9 mg/dL (1.8-2.4); POTASSIUM 3.5 mmol/L (3.5-5.1)
[2024-04-28] MEDS ORDERED: POTASSIUM CHLORIDE 10 MEQ TABCR PO ONE (08:15)
[2024-04-29] VITALS (9 sets, daily range): BP systolic 119–140; BP diastolic 63–71
[2024-04-29 05:30] LABS: ANION GAP 5.4 (7-21); BUN/CREATININE RATIO 27.02 (6.0-28.6); CALCIUM 9.1 mg/dL (8.5-10.1); CREATININE, SERUM 0.74 mg/dL (0.55-1.02); MAGNESIUM 1.9 mg/dL (1.8-2.4); POTASSIUM 3.4 mmol/L (3.5-5.1)
[2024-04-29] MEDS ORDERED: POTASSIUM CHLORIDE 10 MEQ TABCR PO ONE ×2 (09:00→13:00)
[2024-04-30] VITALS (8 sets, daily range): BP systolic 119–126; BP diastolic 58–79
[2024-04-30 05:53] LABS: ANION GAP 6.7 (7-21); BUN/CREATININE RATIO 23.28 (6.0-28.6); CALCIUM 9.3 mg/dL (8.5-10.1); CREATININE, SERUM 0.73 mg/dL (0.55-1.02); POTASSIUM 3.7 mmol/L (3.5-5.1)
[2024-05-01] VITALS (9 sets, daily range): BP systolic 116–127; BP diastolic 52–86
[2024-05-02] VITALS (10 sets, daily range): BP systolic 118–132; BP diastolic 57–68
[2024-05-02 05:33] LABS: BASOPHILS 0.8 % (0-2); EOSINOPHILS 3.4 % (0-6); HEMATOCRIT 33.9 % (35.0-50.0); HEMOGLOBIN 11.4 g/dL (12.0-18.0); LYMPHOCYTES 19.4 % (24-44); MCH 30.8 (27-36); MCHC 33.6 g/dl (30-36); MCV 91.8 fl (81-99); NEUTROPHILS 68.4 % (39-80); PLATELET COUNT 235 K/uL (140-440); RBC 3.69 M/ul (4.3-5.7); RDW 16.6 (10.5-15.0)
[2024-05-02 05:59] LABS: ALBUMIN 3.3 g/dL (3.4-5.0); ALBUMIN/GLOBULIN RATIO 0.83 (1.1-2.4); ANION GAP 4.9 (7-21); BILIRUBIN, TOTAL 1.9 ng/dL (0.2-1.0); BUN/CREATININE RATIO 20.25 (6.0-28.6); CALCIUM 9.4 mg/dL (8.5-10.1); CREATININE, SERUM 0.79 mg/dL (0.55-1.02); MAGNESIUM 1.9 mg/dL (1.8-2.4); POTASSIUM 3.9 mmol/L (3.5-5.1); PROTEIN, TOTAL 7.3 g/dL (6.4-8.2)
[2024-05-03] VITALS (8 sets, daily range): BP systolic 114–137; BP diastolic 55–81
[2024-05-03 05:16] LABS: BASOPHILS 0.9 % (0-2); EOSINOPHILS 3.4 % (0-6); HEMATOCRIT 33.8 % (35.0-50.0); HEMOGLOBIN 11.4 g/dL (12.0-18.0); LYMPHOCYTES 17.8 % (24-44); MCH 30.7 (27-36); MCHC 33.9 g/dl (30-36); MCV 90.5 fl (81-99); MONOCYTES 8.7 % (0-12); NEUTROPHILS 69.2 % (39-80); PLATELET COUNT 250 K/uL (140-440); RBC 3.73 M/ul (4.3-5.7); RDW 16.1 (10.5-15.0)
[2024-05-03 05:34] LABS: ALBUMIN 3.3 g/dL (3.4-5.0); ALBUMIN/GLOBULIN RATIO 0.79 (1.1-2.4); ANION GAP 6.9 (7-21); BILIRUBIN, TOTAL 2.3 ng/dL (0.2-1.0); BUN/CREATININE RATIO 22.85 (6.0-28.6); CALCIUM 9.3 mg/dL (8.5-10.1); CREATININE, SERUM 0.7 mg/dL (0.55-1.02); MAGNESIUM 1.8 mg/dL (1.8-2.4); POTASSIUM 3.9 mmol/L (3.5-5.1); PROTEIN, TOTAL 7.5 g/dL (6.4-8.2)
[2024-05-03] MEDS ORDERED: ALBUTEROL/IPRATROPIUM 3 ML NEB INH SCH (08:00)
[2024-05-03 19:09] LABS: INFLUENZA B NAA NEGATIVE (NEGATIVE); RESPIRATORY SYNCYTIAL VIR NAA NEGATIVE (NEGATIVE)
[2024-05-03] MEDS ORDERED: FUROSEMIDE 40 MG TAB PO SCH (21:00)
[2024-05-04] VITALS (8 sets, daily range): BP systolic 116–140; BP diastolic 54–73
[2024-05-04 05:51] LABS: BASOPHILS 0.9 % (0-2); EOSINOPHILS 2.9 % (0-6); HEMATOCRIT 32.6 % (35.0-50.0); HEMOGLOBIN 11.1 g/dL (12.0-18.0); LYMPHOCYTES 17.7 % (24-44); MCH 30.7 (27-36); MCV 90.3 fl (81-99); MONOCYTES 8.5 % (0-12); PLATELET COUNT 245 K/uL (140-440); RBC 3.61 M/ul (4.3-5.7); RDW 15.9 (10.5-15.0)
[2024-05-04 06:09] LABS: ALBUMIN 3.2 g/dL (3.4-5.0); ALBUMIN/GLOBULIN RATIO 0.78 (1.1-2.4); ANION GAP 6.7 (7-21); BILIRUBIN, TOTAL 2.4 ng/dL (0.2-1.0); BUN/CREATININE RATIO 22.85 (6.0-28.6); CALCIUM 9.3 mg/dL (8.5-10.1); CREATININE, SERUM 0.7 mg/dL (0.55-1.02); POTASSIUM 3.7 mmol/L (3.5-5.1); PROTEIN, TOTAL 7.3 g/dL (6.4-8.2)
[2024-05-04 10:59] LABS: BILIRUBIN, URINE NEGATIVE (negative); BLOOD/HGB, URINE SMALL (Negative); KETONE, URINE NEGATIVE (Negative); LEUK ESTERASE, URINE SMALL (negative); NITRITE, URINE NEGATIVE (negative)
[2024-05-04 11:12] LABS: CRYSTALS, URINE NONE SEEN (0-1+); EPITHELIAL CELLS, URINE SQUAMOUS 2+ /lpf (0-1+)
[2024-05-04 11:13] LABS: BACTERIA, URINE RARE /hpf (negative); CASTS, URINE NONE SEEN \\lpf; COLLECTION TYPE, URINE CATH; REFLEX CULTURE, URINE No (No)
[2024-05-04] MEDS ORDERED: FUROSEMIDE 40 MG TAB PO SCH (13:00)
[2024-05-05] VITALS (8 sets, daily range): BP systolic 114–138; BP diastolic 54–74
[2024-05-05] MEDS ORDERED: FUROSEMIDE 40 MG TAB PO SCH (09:00)
[2024-05-05 09:07] LABS: ANION GAP 12.2 (7-21); BUN/CREATININE RATIO 22.72 (6.0-28.6); CALCIUM 9.6 mg/dL (8.5-10.1); CREATININE, SERUM 0.66 mg/dL (0.55-1.02); POTASSIUM 4.2 mmol/L (3.5-5.1)
[2024-05-05] MEDS ORDERED: FLU VACC TS2024-25(6MOS UP)/PF 1 EACH SYR ONE (13:50)
[2024-05-06 05:10] VITALS: BP 139/84
[2024-05-06 05:12] VITALS: BP 139/84
[2024-05-06 06:06] LABS: ANION GAP 12.5 (7-21); BUN/CREATININE RATIO 20.54 (6.0-28.6); CALCIUM 9.6 mg/dL (8.5-10.1); CREATININE, SERUM 0.73 mg/dL (0.55-1.02); MAGNESIUM 1.7 mg/dL (1.8-2.4); POTASSIUM 3.5 mmol/L (3.5-5.1)
[2024-05-06 09:34] VITALS: BP 123/59
[2024-05-06 09:36] VITALS: BP 123/59
[2024-05-06] MEDS ORDERED: SOAANZ40 MG PO (11:15)
[2024-05-06] MEDS ORDERED: POTASSIUM CHLO20 ME1 PO (11:16)
[2024-05-06] MEDS ORDERED: ALBUTEROL2.5 MG/3 M INH (11:20)
[2024-05-06 12:22] VITALS: BP 141/84
== END 2024-05-06 13:45 | disposition home health service (06) | DRG 189 ==
LOC: ED 21:38 → MS 04-22 10:56
PROVIDERS: Family Medicine; Internal Medicine; Student in an Organized Health Care Education/Training Program; ADMIT Student in an Organized Health Care Education/Training Program; ATTEND Student in an Organized Health Care Education/Training Program
PROC: 5A09357 Assistance with Respiratory Ventilation, Less than 24 Consecutive Hours, Continuous Positive Airway Pressure (ICD-10-PCS; principal; 2024-04-21)
DX: J96.01 Acute respiratory failure with hypoxia (principal); J18.9 Pneumonia, unspecified organism; J44.0 Chronic obstructive pulmonary disease with (acute) lower respiratory infection; E87.20 Acidosis, unspecified; Z68.45 Body mass index [BMI] 70 or greater, adult; J44.1 Chronic obstructive pulmonary disease with (acute) exacerbation; I50.9 Heart failure, unspecified; I11.0 Hypertensive heart disease with heart failure; I89.0 Lymphedema, not elsewhere classified; E66.813 Obesity, class 3; K21.9 Gastro-esophageal reflux disease without esophagitis; F31.9 Bipolar disorder, unspecified; K58.9 Irritable bowel syndrome, unspecified; F41.1 Generalized anxiety disorder; E66.01 Morbid (severe) obesity due to excess calories; I27.20 Pulmonary hypertension, unspecified; Z88.1 Allergy status to other antibiotic agents; Z91.040 Latex allergy status; Z88.8 Allergy status to other drugs, medicaments and biological substances; Z79.51 Long term (current) use of inhaled steroids
CPT/HCPCS: 36415; 51702; 71045; 80048; 80053; 81001; 83605; 83735; 83880; 84100; 84439; 84443; 84484; 84703; 85025; 87040; 87502; 90656; 93005; 93010; 93306; 94640; 94667; 94668; 94761; 94762; 94799; 97110; 97162; 97165; 97530; 97535; 99285-25; A9270; J0878; J1650; J1940; J1956; J7512; U0002

== ENCOUNTER 2024-08-03 18:49 | Emergency (ER) | payer OTHER ==
[~2024-08-03] VITALS: Ht 162.6 cm; Wt 249.0 kg
[~2024-08-03 18:49] MED LIST changes: +FLUTICASONE PR50 MCG IH; +HYDROCHLOROTH12.5 M1 PO; +IRON325 M1 PO; +POTASSIUM CHLO20 ME1 PO; +SOAANZ40 MG PO
--- OUTSIDE RECORDS SUMMARY | 2024-08-03 18:55 | XMS ---
PreManage Notification: DICK FIERRO Security Retouching Operator Events No recent Security Events currently on file CRITERIA MET - Group Notification CARE PROVIDERS -, [facility] Dentist: Olericulture Teacher Current [place] PHONE: [phone] -[place]- Dentist: Olericulture Teacher Current [facility] PHONE: [phone] BILL KENNEDY Physician Software Tools Developer Current PHONE: [phone] Donna Leroy Credit Collections Clerk/Director Security Management Current PHONE: [phone] [facility] Clinic/Center: [facility] Qualified Health Current WORKERS CLINIC \[facility] ([facility]) <UNAVAIL> PHONE: [phone] Anne has no Care Guidelines for this patient. Ledy VISIT COUNT (12 MO.) [address] [facility] TOTAL 2 NOTE: Visits indicate total known visits. ED/UCC VISIT TRACKING (12 MO.) 08/03/2024 18:49 [facility] TYPE: Emergency COMPLAINT: - LEG SWELLING/TROUBLE BREATHING/CHEST PAIN 04/21/2024 21:39 [facility] TYPE: Emergency COMPLAINT: - TROUBLE BREATHING INPATIENT VISIT TRACKING (12 MO.) 04/22/2024 10:56 [facility] TYPE: Medical Surgical COMPLAINT: - [facility] DIAGNOSES: - Acidosis, unspecified - Acidosis, unspecified - Acute respiratory failure with hypoxia - Acute respiratory failure with hypoxia - Allergy status to other antibiotic agents - Allergy status to other antibiotic agents - Allergy status to other drugs, medicaments and biological substances - Allergy status to other drugs, medicaments and biological substances - Bipolar disorder, unspecified - Bipolar disorder, unspecified - Body mass index [BMI] 70 or greater, adult - Body mass index [BMI] 70 or greater, adult - Chronic obstructive pulmonary disease with (acute) exacerbation - Chronic obstructive pulmonary disease with (acute) exacerbation - Chronic obstructive pulmonary disease with (acute) lower respiratory infection - Chronic obstructive pulmonary disease with (acute) lower respiratory infection - Gastro-esophageal reflux disease without esophagitis - Gastro-esophageal reflux disease without esophagitis - Generalized anxiety disorder - Generalized anxiety disorder - Heart failure, unspecified - Heart failure, unspecified - Hypertensive heart disease with heart failure - Hypertensive heart disease with heart failure - Irritable bowel syndrome without diarrhea - Irritable bowel syndrome without diarrhea - Latex allergy status - Latex allergy status - watermaster (current) use of inhaled steroids - watermaster (current) use of inhaled steroids - Lymphedema, not elsewhere classified - Lymphedema, not elsewhere classified - Morbid (severe) obesity due to excess calories - Morbid (severe) obesity due to excess calories - Pneumonia, unspecified organism - Pulmonary hypertension, unspecified - Pulmonary hypertension, unspecified - OBESITY, CLASS 3 - OBESITY, CLASS 3 [email or web address]
[2024-08-03 19:46] LABS: BASOPHILS 0.4 % (0-2); EOSINOPHILS 2.9 % (0-6); HEMATOCRIT 32.1 % (35.0-50.0); HEMOGLOBIN 11.1 g/dL (12.0-18.0); LYMPHOCYTES 18.5 % (24-44); MCH 31.4 (27-36); MCHC 34.5 g/dl (30-36); MCV 91.1 fl (81-99); MONOCYTES 5.4 % (0-12); NEUTROPHILS 72.8 % (39-80); PLATELET COUNT 230 K/uL (140-440); RBC 3.53 M/ul (4.3-5.7); RDW 14.7 (10.5-15.0)
[2024-08-03 20:04] LABS: ALBUMIN 3.2 g/dL (3.4-5.0); ALBUMIN/GLOBULIN RATIO 0.7 (1.1-2.4); ANION GAP 6.5 (7-21); CALCIUM 9.1 mg/dL (8.5-10.1); CREATININE, SERUM 0.85 mg/dL (0.55-1.02); MAGNESIUM 1.9 mg/dL (1.8-2.4); POTASSIUM 3.5 mmol/L (3.5-5.1); PROTEIN, TOTAL 7.8 g/dL (6.4-8.2)
[2024-08-03] MEDS ORDERED: FUROSEMIDE 100 MG/10 ML VIAL IV ONE (20:15)
[2024-08-03] MEDS ORDERED: TORSEMIDE100 MG PO (21:26)
[2024-08-03 21:34] VITALS: BP 152/89
--- NOTE | 2024-08-04 14:37 | EKG ---
[facility] [address] [place] [address] Signed Normal sinus rhythm Nonspecific ST abnormality Abnormal ECG When compared with ECG of 21-APR-2024 21:45, Incomplete right bundle branch block is no longer present Confirmed by Hayley Cook DO ([id number]) on 08/04/2024 2:37:53 PM Electronically Signed By: HAYLEY COOK DO 08/04/24 1437 PATIENT NAME: DICK FIERRO Electrocardiogram DATE OF : 84 PHYSICIAN: HAYLEY COOK DO REPORT #: [id number] REPORT IS CONFIDENTIAL AND NOT TO BE RELEASED WITHOUT AUTHORIZATION
== END 2024-08-03 21:34 | disposition home or self-care (01) ==
LOC: ED 18:49
PROVIDERS: Emergency Medicine
DX: I11.0 Hypertensive heart disease with heart failure (principal); I50.9 Heart failure, unspecified; F43.10 Post-traumatic stress disorder, unspecified; Z79.52 Long term (current) use of systemic steroids; Z79.899 Other long term (current) drug therapy; Z88.1 Allergy status to other antibiotic agents; Z91.048 Other nonmedicinal substance allergy status; Z91.040 Latex allergy status; Z88.8 Allergy status to other drugs, medicaments and biological substances
CPT/HCPCS: 36415; 51702; 71045; 80053; 83735; 83880; 84484; 84703; 85025; 93005; 93010; 99285-25; A4311; J1938

== ENCOUNTER 2024-08-12 01:49 | Emergency (ER) | payer OTHER ==
[~2024-08-12] VITALS: Ht 162.6 cm; Wt 260.0 kg
[~2024-08-12 01:49] MED LIST changes: +TORSEMIDE100 MG PO
--- OUTSIDE RECORDS SUMMARY | 2024-08-12 01:56 | XMS ---
PreManage Notification: DICK FIERRO Security Divinity Teacher Events No recent Security Events currently on file CRITERIA MET - Group Notification - [facility] - 2 Visits in 30 Days CARE PROVIDERS -[facility] Dentist: Veterinarian Helper [facility] PHONE: [phone] -[place]- Dentist: Veterinarian Helper Current [facility] PHONE: [phone] BILL KENNEDY Physician Healthcare Translator Current PHONE: [phone] Donna Leroy Trouble Locater/Box Bender Current PHONE: [phone] [facility] Clinic[facility]Center[facility] Qual[facility] Current WORKERS CLINIC \[facility] (FQ) <UNAVAIL> PHONE: [phone] Anne has no Care Guidelines for this patient. Ledy VISIT COUNT (12 MO.) [address] [facility] TOTAL 3 NOTE: Visits indicate total known visits. ED/UCC VISIT TRACKING (12 MO.) 08/12/2024 01:50 [facility] TYPE: Emergency COMPLAINT: - CATHETER ISSUE 08/03/2024 18:49 [facility] TYPE: Emergency COMPLAINT: - LEG SWELLING/TROUBLE BREATHING/CHEST PAIN DIAGNOSES: - Allergy status to other antibiotic agents - Allergy status to other drugs, medicaments and biological substances - Heart failure, unspecified - Hypertensive heart disease with heart failure - Latex allergy status - superintendent terminal (current) use of systemic steroids - Other fdc (current) drug therapy - Other nonmedicinal substance allergy status - Post-traumatic stress disorder, unspecified - Shortness of breath 04/21/2024 21:39 [facility] TYPE: Emergency COMPLAINT: - TROUBLE BREATHING INPATIENT VISIT TRACKING (12 MO.) 04/22/2024 10:[address] [facility] TYPE: Medical Surgical COMPLAINT: - [facility] DIAGNOSES: - Acidosis, unspecified - Acidosis, unspecified [...] allergy status - Latex allergy status - superintendent terminal (current) use of inhaled steroids - superintendent terminal (current) use of inhaled steroids - Lymphedema, not elsewhere classified - Lymphedema, not elsewhere classified - Morbid (severe) obesity due to excess calories - Morbid (severe) obesity due to excess calories - Pneumonia, unspecified organism - Pulmonary hypertension, unspecified - Pulmonary hypertension, unspecified - OBESITY, CLASS 3 - OBESITY, CLASS 3 [email or web address]
[2024-08-12 02:21] LABS: BILIRUBIN, URINE NEGATIVE (negative); BLOOD/HGB, URINE MODERATE (Negative); KETONE, URINE NEGATIVE (Negative); LEUK ESTERASE, URINE MODERATE (negative); NITRITE, URINE NEGATIVE (negative)
[2024-08-12 02:26] LABS: EPITHELIAL CELLS, URINE SQUAMOUS 2+ /lpf (0-1+)
[2024-08-12 02:27] LABS: BACTERIA, URINE RARE /hpf (negative); CASTS, URINE NONE SEEN \\lpf; COLLECTION TYPE, URINE CLEAN CATCH; CRYSTALS, URINE NONE SEEN (0-1+); REFLEX CULTURE, URINE No (No); WHITE BLOOD CELLS, URINE 21-40 /HPF (0-5)
[2024-08-12] MEDS ORDERED: metroNIDAZOLE 500 MG HOME.PACK PO ONE (02:45)
[2024-08-12 03:00] VITALS: BP 142/80
== END 2024-08-12 04:10 | disposition home or self-care (01) ==
LOC: ED 01:49
PROVIDERS: Family Medicine
DX: N76.0 Acute vaginitis (principal); F43.10 Post-traumatic stress disorder, unspecified; I11.0 Hypertensive heart disease with heart failure; J45.909 Unspecified asthma, uncomplicated; I50.9 Heart failure, unspecified; Z91.040 Latex allergy status; Z88.8 Allergy status to other drugs, medicaments and biological substances; Z88.2 Allergy status to sulfonamides; Z79.2 Long term (current) use of antibiotics; Z79.51 Long term (current) use of inhaled steroids; Z91.048 Other nonmedicinal substance allergy status
CPT/HCPCS: 51702; 81001; 99283; A4311; A9270